=== PATIENT | female | born 1985 | race Caucasian/White ===

== ENCOUNTER 2018-07-06 13:06 | Emergency (ER) | payer MEDICAID ==
[~2018-07-06] VITALS: Ht 157.5 cm; Wt 63.6 kg
[2018-07-06 13:21] VITALS: BP 115/60
[2018-07-06] MEDS ORDERED: PROAIR HFA0.09 MG/AC IH (15:18)
[2018-07-06] MEDS ORDERED: PREDNISONE20 MG PO (15:18)
[2018-07-06] MEDS ORDERED: ZITHROMAX Z PA250 MG PO (15:18)
[2018-07-06 15:40] VITALS: PULSE 83; TEMP 96.6
== END 2018-07-06 15:40 | disposition home or self-care (01) ==
LOC: COL.ER 13:06
DX: J20.9 Acute bronchitis, unspecified (principal); F17.210 Nicotine dependence, cigarettes, uncomplicated; Z88.1 Allergy status to other antibiotic agents; Z72.0 Tobacco use

== ENCOUNTER 2018-09-10 13:25 | Emergency (ER) | payer MEDICAID ==
[~2018-09-10] VITALS: Ht 157.5 cm; Wt 66.8 kg
[~2018-09-10 13:25] MED LIST: PREDNISONE20 MG PO; PROAIR HFA0.09 MG/AC IH; ZITHROMAX Z PA250 MG PO
[2018-09-10 13:32] VITALS: BP 163/95; TEMP 98.4
[2018-09-10] MEDS ORDERED: MOBIC 7.5MG7.5 MG PO (13:47)
[2018-09-10] MEDS ORDERED: FLEXERIL5 MG PO (13:48)
[2018-09-10] MEDS ORDERED: NATURAL IRON65 MG PO (13:49)
[2018-09-10 15:51] VITALS: PULSE 77
== END 2018-09-10 15:57 | disposition home or self-care (01) ==
LOC: COL.ER 13:25
DX: M54.41 Lumbago with sciatica, right side (principal); F17.210 Nicotine dependence, cigarettes, uncomplicated
CPT/HCPCS: J1885

== ENCOUNTER 2018-12-08 06:55 | Emergency (ER) | payer MEDICAID ==
[~2018-12-08] VITALS: Ht 157.5 cm; Wt 71.8 kg
[~2018-12-08 06:55] MED LIST changes: +FLEXERIL5 MG PO; +MOBIC 7.5MG7.5 MG PO; +NATURAL IRON65 MG PO
[2018-12-08 06:59] VITALS: TEMP 98.8
[2018-12-08 07:36] LABS: BASO % 0.3 % (0.0-2.0); EOS # 0.3 (0.0-0.7); EOS % 2.8 % (0-4.0); GRAN # 4.8 (1.4-6.5); GRAN % 53.4 % (42.2-75.2); HEMATOCRIT 41.8 % (37.0-47.0); HEMOGLOBIN 14.1 g/dl (12.5-16.0); LYMPH # 3.2 (1.2-3.4); LYMPH % 35.4 % (20.0-51.0); MEAN CELL VOLUME 93 fl (80.0-100.0); MEAN CORPUSCULAR HEMOGLOBIN 31 pg (27.0-31.0); MEAN CORPUSCULAR HGB CONC 34 g/dl (33.0-37.0); MEAN PLATELET VOLUME 10.3 fl (7.4-10.4); MONO # 0.7 (0.1-0.6); MONO % 7.9 % (1.7-9.3); PLATELET COUNT 296 K/mm3 (130-400); REDCELL DISTRIBUTION WIDTH-CV 13.2 % (11.5-14.5)
[2018-12-08 07:46] LABS: COLLECTION METHOD CLEAN CATCH
[2018-12-08 07:49] LABS: ALANINE AMINOTRANSFERASE 12 U/L (9-52); ALBUMIN 4.5 gm/dL (3.5-5.0); ALKALINE PHOSPHATASE 85 U/L (50-136); ANION GAP 10 mmol/L (7-16); AST,SGOT 20 U/L (15-37); BILIRUBIN,TOTAL 0.2 mg/dL (0.0-1.0); BLOOD UREA NITROGEN 9 mg/dL (7-17); CALCIUM 9.2 mg/dL (8.4-10.2); CARBON DIOXIDE 23 mmol/L (22-30); CHLORIDE 108 mmol/L (98-107); CREATININE, serum 0.65 (0.52-1.25); GLUCOSE 109 mg/dL (74-106); LIPASE 64 U/L (23-300); POTASSIUM 4.1 mmol/L (3.4-5.0); SODIUM 141 mmol/L (137-145); TOTAL PROTEIN 7.5 gm/dL (6.4-8.2)
[2018-12-08 07:55] LABS: MUCOUS Present /lpf; PH 5 (5-8); URINE APPEARANCE Hazy; URINE BACTERIA None Seen /hpf; URINE BILIRUBIN Negative (NEGATIVE); URINE BLOOD Negative (NEGATIVE); URINE COLOR Yellow; URINE GLUCOSE Negative (NEGATIVE); URINE KETONE Negative (NEGATIVE); URINE LEUKOCYTE ESTERASE Negative (NEGATIVE); URINE NITRATE Negative (NEGATIVE); URINE PROTEIN(semi-quant) Negative (NEGATIVE); URINE RBC 0-2 /hpf; URINE UROBILINOGEN Negative (NEGATIVE)
[2018-12-08 07:55] LABS: C-REACTIVE PROTEIN < 0.5 mg/dL (0.0-0.9)
[2018-12-08] MEDS ORDERED: NORCO 325 MG-51 TAB PO (10:03)
[2018-12-08 10:30] VITALS: BP 102/61; PULSE 71
== END 2018-12-08 10:45 | disposition home or self-care (01) ==
LOC: COL.ER 06:55
PROVIDERS: Family Medicine
DX: O03.4 Incomplete spontaneous abortion without complication (principal)
CPT/HCPCS: J1170; J1885; J2270; J2405; J7030

== ENCOUNTER 2019-04-02 18:38 | Emergency (ER) | payer MEDICAID ==
[~2019-04-02] VITALS: Ht 157.5 cm; Wt 68.2 kg
[~2019-04-02 18:38] MED LIST changes: +NORCO 325 MG-51 TAB PO
[2019-04-02 18:42] VITALS: TEMP 97.8
[2019-04-02 19:22] LABS: COLLECTION METHOD CLEAN CATCH
[2019-04-02 19:30] LABS: BASO % 0.2 % (0.0-2.0); EOS # 0.1 (0.0-0.7); EOS % 0.7 % (0-4.0); GRAN # 9.2 (1.4-6.5); GRAN % 63.5 % (42.2-75.2); HEMATOCRIT 41.8 % (37.0-47.0); HEMOGLOBIN 14.2 g/dl (12.5-16.0); LYMPH % 27.7 % (20.0-51.0); MEAN CELL VOLUME 90 fl (80.0-100.0); MEAN CORPUSCULAR HEMOGLOBIN 31 pg (27.0-31.0); MEAN CORPUSCULAR HGB CONC 34 g/dl (33.0-37.0); MEAN PLATELET VOLUME 10.2 fl (7.4-10.4); MONO # 1.1 (0.1-0.6); MONO % 7.7 % (1.7-9.3); PLATELET COUNT 317 K/mm3 (130-400); RED BLOOD COUNT 4.63 M/mm3 (4.10-5.30); REDCELL DISTRIBUTION WIDTH-CV 13.4 % (11.5-14.5)
[2019-04-02 19:38] LABS: ALANINE AMINOTRANSFERASE 27 U/L (9-52); ALBUMIN 4.9 gm/dL (3.5-5.0); ALKALINE PHOSPHATASE 85 U/L (50-136); ANION GAP 12 mmol/L (7-16); AST,SGOT 23 U/L (15-37); BILIRUBIN,TOTAL 0.4 mg/dL (0.0-1.0); BLOOD UREA NITROGEN 13 mg/dL (7-17); CALCIUM 9.5 mg/dL (8.4-10.2); CARBON DIOXIDE 23 mmol/L (22-30); CHLORIDE 105 mmol/L (98-107); CREATININE, serum 0.73 (0.52-1.25); GLUCOSE 83 mg/dL (74-106); LIPASE 72 U/L (23-300); POTASSIUM 3.7 mmol/L (3.4-5.0); SODIUM 140 mmol/L (137-145)
[2019-04-02 19:39] LABS: C-REACTIVE PROTEIN < 0.5 mg/dL (0.0-0.9)
[2019-04-02 19:40] LABS: MUCOUS Present /lpf; PH 5 (5-8); URINE APPEARANCE Cloudy; URINE BACTERIA None Seen /hpf; URINE BILIRUBIN Negative (NEGATIVE); URINE BLOOD Negative (NEGATIVE); URINE GLUCOSE Negative (NEGATIVE); URINE KETONE Trace (NEGATIVE); URINE LEUKOCYTE ESTERASE Trace (NEGATIVE); URINE NITRATE Negative (NEGATIVE); URINE PROTEIN(semi-quant) 1+ (NEGATIVE)
[2019-04-02 19:41] LABS: URINE COLOR Yellow
[2019-04-02] MEDS ORDERED: DOXYCYCLINE 10100 MG PO (20:43)
[2019-04-02 21:15] VITALS: BP 130/82; PULSE 70
== END 2019-04-02 21:15 | disposition home or self-care (01) ==
LOC: COL.ER 18:38
PROVIDERS: Emergency Medicine
DX: R10.31 Right lower quadrant pain (principal); Z98.51 Tubal ligation status
CPT/HCPCS: J0696; J1885; J2405; J3010; J7030; Q9967

== ENCOUNTER 2020-02-07 15:10 | Emergency (ER) | payer MEDICAID ==
[~2020-02-07] VITALS: Ht 157.5 cm; Wt 77.3 kg
[~2020-02-07 15:10] MED LIST changes: +DOXYCYCLINE 10100 MG PO
[2020-02-07 15:32] VITALS: TEMP 99.2
[2020-02-07 15:52] LABS: COLLECTION METHOD CLEAN CATCH
[2020-02-07 16:01] LABS: MUCOUS Present /lpf; PH 5 (5-8); URINE APPEARANCE Hazy; URINE BACTERIA None Seen /hpf; URINE BILIRUBIN Negative (NEGATIVE); URINE BLOOD Negative (NEGATIVE); URINE GLUCOSE Negative (NEGATIVE); URINE KETONE Negative (NEGATIVE); URINE LEUKOCYTE ESTERASE 1+ (NEGATIVE); URINE NITRATE Negative (NEGATIVE); URINE PROTEIN(semi-quant) Negative (NEGATIVE); URINE UROBILINOGEN Negative (NEGATIVE)
[2020-02-07 16:03] LABS: URINE COLOR Straw
[2020-02-07] MEDS ORDERED: WELLBUTRIN SR150 M1 PO (16:45)
[2020-02-07 17:53] LABS: BASO # 0.1 (0.0-0.2); BASO % 0.5 % (0.0-2.0); EOS # 0.3 (0.0-0.7); EOS % 3.4 % (0-4.0); GRAN # 5.5 (1.4-6.5); GRAN % 59.8 % (42.2-75.2); HEMATOCRIT 42.2 % (37.0-47.0); HEMOGLOBIN 13.9 g/dl (12.5-16.0); LYMPH # 2.8 (1.2-3.4); LYMPH % 29.7 % (20.0-51.0); MEAN CELL VOLUME 91 fl (80.0-100.0); MEAN CORPUSCULAR HEMOGLOBIN 30 pg (27.0-31.0); MEAN CORPUSCULAR HGB CONC 33 g/dl (33.0-37.0); MEAN PLATELET VOLUME 9.4 fl (7.4-10.4); MONO # 0.6 (0.1-0.6); MONO % 6.3 % (1.7-9.3); PLATELET COUNT 418 K/mm3 (130-400); RED BLOOD COUNT 4.66 M/mm3 (4.10-5.30); REDCELL DISTRIBUTION WIDTH-CV 13.3 % (11.5-14.5)
[2020-02-07 18:04] LABS: ALBUMIN 4.8 gm/dL (3.5-5.0); BILIRUBIN,TOTAL 0.5 mg/dL (0.0-1.0); CALCIUM 9.9 mg/dL (8.4-10.2); CREATININE, serum 0.69 (0.52-1.25); POTASSIUM 4.1 mmol/L (3.4-5.0)
[2020-02-07 19:25] VITALS: BP 130/93; PULSE 81
== END 2020-02-07 19:25 | disposition home or self-care (01) ==
LOC: COL.ER 15:10
PROVIDERS: Emergency Medicine
DX: K59.00 Constipation, unspecified (principal); R10.2 Pelvic and perineal pain; F17.210 Nicotine dependence, cigarettes, uncomplicated; Z88.5 Allergy status to narcotic agent; Z88.1 Allergy status to other antibiotic agents; Z90.711 Acquired absence of uterus with remaining cervical stump
CPT/HCPCS: Q9967

== ENCOUNTER 2021-04-03 10:53 | Emergency (ER) | payer MEDICAID ==
[~2021-04-03] VITALS: Ht 157.5 cm; Wt 77.3 kg
[~2021-04-03 10:53] MED LIST changes: +WELLBUTRIN SR150 M1 PO
[2021-04-03 11:00] VITALS: TEMP 98.9
[2021-04-03 12:35] VITALS: BP 112/96; PULSE 91
== END 2021-04-03 12:35 | disposition home or self-care (01) ==
LOC: COL.ER 10:53
DX: U07.1 COVID-19 (principal)

== ENCOUNTER 2021-08-02 12:09 | Emergency (ER) | payer MEDICAID ==
[~2021-08-02] VITALS: Ht 157.5 cm; Wt 77.3 kg
[2021-08-02] MEDS ORDERED: FLEXERIL 1010 MG/TAB PO (12:54)
[2021-08-02] MEDS ORDERED: NAPROSYN500 MG PO (12:54)
[2021-08-02 13:05] VITALS: BP 119/87; PULSE 70; TEMP 98.1
== END 2021-08-02 13:05 | disposition home or self-care (01) ==
LOC: COL.ER 12:09
DX: M54.50 Low back pain, unspecified (principal); G89.29 Other chronic pain